=== PATIENT | female | born 1990 | race Caucasian/White ===

== ENCOUNTER 2019-01-22 18:04 | Emergency (ER) | payer OTHER ==
[2019-01-22 18:43] LABS: Urine Blood 2+ (NEG); Urine Glucose NEGATIVE (NEG); Urine Protein NEGATIVE (NEG); Urine pH 6.5 (5.0-7.0)
[2019-01-22] MEDS ORDERED: NA CHLORIDE 0.9% 1,000 ML ONE (18:43)
[2019-01-22] MEDS ORDERED: KETOROLAC 30 MG/ML INJ ONE (18:43)
[2019-01-22 19:10] LABS: Absolute Lymphocytes (CBC) 2.3 K/uL (0.7-4.9); Absolute Monocytes 0.4 K/uL (0.1-1.3); Absolute Neutrophil 4.6 K/uL (1.8-8.0); Basophils % 0.5 % (0-1.3); Eosinophils % 1.5 % (0-4.4); Hematocrit 37.9 % (36.0-45.0); Lymphocytes % 30.9 % (15.3-44.8); MPV 9.5 fL (7.6-11.3); Monocytes % 5.2 % (3.3-12.3); RBC Red Blood Cell Count 4.22 M/uL (3.86-4.86)
[2019-01-22 19:33] LABS: Potassium 3.9 mmol/L (3.5-5.1)
--- NOTE | 2019-01-22 23:01 | EDPHYS ---
Physician Documentation [facility] Name: Candice Rivera Age: 28 yrs Sex: Female : 1990 Arrival Date: 01/22/2019 Time: 18:08 Bed 24 Private MD: ED Physician Carlos Welsh HPI: 01/22 21:30 This 28 yrs old Female presents to ER via Ambulatory with complaints of kb Abdominal Pain. 21:30 The patient presents with abdominal pain right lower quadrant. Onset: The kb symptoms/episode began/occurred yesterday. The symptoms do not radiate. Associated signs and symptoms: none. The symptoms are described as constant. Modifying factors: The symptoms are alleviated by nothing, the symptoms are aggravated by nothing. Severity of pain: At its worst the pain was moderate in the emergency department the pain is unchanged. The patient has not experienced similar symptoms in the past. The patient has not recently seen a physician. 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 - Social history:: Smoking status: Patient/guardian denies using tobacco. - Ebola Screening: : No symptoms or risks identified at this time. ROS: 21:41 Constitutional: Negative for fever, chills, and weight loss, Neck: Negative for injury, kb pain, and swelling, Cardiovascular: Negative for chest pain, palpitations, and edema, Respiratory: Negative for shortness of breath, cough, wheezing, and pleuritic chest pain, Back: Negative for injury and pain, : Negative for injury, bleeding, discharge, and swelling, MS/Extremity: Negative for injury and deformity, Skin: Negative for injury, rash, and discoloration, Neuro: Negative for headache, weakness, numbness, tingling, and seizure. 21:41 Abdomen/GI: Positive for abdominal pain, Negative for nausea, vomiting, and diarrhea. Exam: 21:40 Constitutional: This is a well developed, well nourished patient who is awake, alert, kb and in no acute distress. Head/Face: Normocephalic, atraumatic. Chest/axilla: Normal chest wall appearance and motion. Nontender with no deformity. No lesions are appreciated. Cardiovascular: Regular rate and rhythm with a normal S1 and S2. No gallops, murmurs, or rubs. Normal PMI, no JVD. No pulse deficits. Respiratory: Lungs have equal breath sounds bilaterally, clear to auscultation and percussion. No rales, rhonchi or wheezes noted. No increased work of breathing, no retractions or nasal flaring. Skin: Warm, dry with normal turgor. Normal color with no rashes, no lesions, and no evidence of cellulitis. MS/ Extremity: Pulses equal, no cyanosis. Neurovascular intact. Full, normal range of motion. Neuro: Awake and alert, GCS 15, oriented to person, place, time, and situation. Cranial nerves II-XII grossly intact. Motor strength 5/5 in all extremities. Sensory grossly intact. Cerebellar exam normal. Normal gait. 21:40 Abdomen/GI: Inspection: abdomen appears normal, Bowel sounds: normal, in all quadrants, Palpation: soft, in all quadrants, moderate abdominal tenderness, in the right lower quadrant. Vital Signs: 18:15 BP 144 / 84; Pulse 73; Resp 16; Temp 98.4; Pulse Ox 100% on R/A; Weight 79.38 kg; hb Height 5 ft. 8 in. (172.72 cm); Pain 8/10; 19:00 BP 127 / 85; Pulse 56; Resp 15; Temp 98.2; Pulse Ox 100% ; rv 21:00 BP 120 / 76; Pulse 66; Resp 16; Pulse Ox 99% ; rv 22:30 BP 128 / 90; Pulse 74; Resp 17; Temp 98.3; Pulse Ox 99% ; rv 18:15 Body Mass Index 26.61 (79.38 kg, 172.72 cm) hb MDM: 18:19 Patient medically screened. kb 21:40 Data reviewed: vital signs, nurses notes. Data interpreted: Pulse oximetry: on room air kb is 100 %. Interpretation: normal. 23:01 Counseling: I had a detailed discussion with the patient and/or guardian regarding: the kb historical points, exam findings, and any diagnostic results supporting the discharge/admit diagnosis, lab results, radiology results, the need for outpatient follow up, a family practitioner, to return to the emergency department if symptoms worsen or persist or if there are any questions or concerns that arise at home. 01/22 18:25 Order name: Basic Metabolic Panel; Complete Time: 19:34 kb 01/22 18:25 Order name: CBC with Diff; Complete Time: 19:32 kb 01/22 18:25 Order name: CT Abd/Pelvis - W/Contrast kb 01/22 18:37 Order name: Urine Dipstick--Ancillary (enter results); Complete Time: 18:46 bd 01/22 18:37 Order name: Urine --Ancillary (enter results); Complete Time: 18:46 bd 01/22 18:25 Order name: IV Saline Lock; Complete Time: 18:28 kb 01/22 18:25 Order name: Labs collected and sent; Complete Time: 18:28 kb 01/22 18:26 Order name: Urine Test (obtain specimen); Complete Time: 18:54 kb 01/22 18:26 Order name: Urine Dipstick-Ancillary (obtain specimen); Complete Time: 18:54 kb Administered Medications: 19:21 Drug: NS 0.9% 1000 ml Route: IV; Rate: 1000 ml; Site: left antecubital; aj1 23:16 Follow up: IV Status: Completed infusion rv 23:16 Follow up: IV Intake: 1000ml rv 19:21 Drug: TORadol 30 mg Route: IVP; Site: left forearm; aj1 23:16 Follow up: Response: Marked relief of symptoms rv Disposition: 01/23 07:07 Co-signature as Attending Physician, Carlos Welsh MD I agree with the assessment and long plan of care. Disposition: 01/22/19 23:01 Discharged to Home. Impression: Lower abdominal pain, unspecified. - Condition is Stable. - Discharge Instructions: Abdominal Pain, Adult, [id number]. - Prescriptions for Diclofenac Sodium 75 mg Oral Tablet, Delayed Release (E.C.) - take 1 tablet by ORAL route 2 times per day As needed; 30 tablet. - Medication Reconciliation Form, Thank You Letter, Antibiotic Education, Prescription Opioid Use form. - Follow up: Emergency Department; When: As needed; Reason: Worsening of condition. Follow up: Private Physician; When: 2 - 3 days; Reason: Recheck today's complaints, Continuance of care, Re-evaluation by your physician. Signatures: Dispatcher [employer] EDND Sharron Tucker, FEED RESEARCH AIDE-C FEED RESEARCH AIDE-Caitlyn Dorado RN RN aj1 aCrlos Welsh MD MD cha Baxter, Heather, RN RN Jose Pierre, RN RN rv Corrections: (The following items were deleted from the chart) 01/22 23:18 23:01 01/22/2019 23:01 Discharged to Home. Impression: Lower abdominal pain, rv unspecified. Condition is Stable. Forms are Medication Reconciliation Form, Thank You Letter, Antibiotic Education, Prescription Opioid Use. Follow up: Emergency Department; When: As needed; Reason: Worsening of condition. Follow up: Private Physician; When: 2 - 3 days; Reason: Recheck today's complaints, Continuance of care, Re-evaluation by your physician. kb
--- NOTE | 2019-01-22 23:01 | ER ---
Nurse's Notes [facility] Name: Candice Rivera Age: 28 yrs Sex: Female : 1990 Arrival Date: 01/22/2019 Time: 18:08 Bed 24 Private MD: Diagnosis: Lower abdominal pain, unspecified Presentation: 01/22 18:16 Presenting complaint: Intermittent RLQ pain x 2 weeks, continuous lower abdominal hb cramping since yesterday. Denies N/V/D/fever/urinary s/s. Transition of care: patient was not received from another setting of care. Onset of symptoms was January 08, 2019. Risk Assessment: Do you want to hurt yourself or someone else? Patient reports no desire to harm self or others. Initial Sepsis Screen: Does the patient meet any 2 criteria? No. Patient's initial sepsis screen is negative. Does the patient have a suspected source of infection? No. Patient's initial sepsis screen is negative. Care prior to arrival: None. 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 - Social history:: Smoking status: Patient/guardian denies using tobacco. - Ebola Screening: : No symptoms or risks identified at this time. Screenin:20 Abuse screen: Denies threats or abuse. Denies injuries from another. Nutritional sg screening: No deficits noted. Tuberculosis screening: No symptoms or risk factors identified. Never had TB. Fall Risk None identified. Assessment: 18:20 General: Appears in no apparent distress. well groomed, well developed, well nourished, sg Behavior is calm, cooperative, appropriate for age. Pain: Complains of pain in right lower quadrant and left lower quadrant Quality of pain is described as aching. Neuro: Level of Consciousness is awake, alert, obeys commands, Oriented to person, place, time. Cardiovascular: Capillary refill < 3 seconds Patient's skin is warm and dry. Respiratory: Airway is patent Respiratory effort is even, unlabored, Respiratory pattern is regular, symmetrical. GI: Abdomen is round non-distended, Bowel sounds present X 4 quads. Abd is soft and non tender X 4 quads. : No signs and/or symptoms were reported regarding the genitourinary system. EENT: No signs and/or symptoms were reported regarding the EENT system. Derm: Skin is pink, warm \T\ dry. Musculoskeletal: No signs and/or symptoms reported regarding the musculoskeletal system. 19:22 Reassessment: Patient reports that her pain is mild at this time. General: Appears in aj1 no apparent distress. comfortable, Behavior is calm, cooperative, appropriate for age. Pain: Complains of pain in left lower quadrant and right lower quadrant. Neuro: Level of Consciousness is awake, alert, obeys commands, Oriented to person, place, time, situation. Cardiovascular: Patient's skin is warm and dry. Respiratory: Airway is patent Respiratory effort is even, unlabored, Respiratory pattern is regular, symmetrical. GI: Abdomen is non-distended. Derm: No signs and/or symptoms reported regarding the dermatologic system. Skin is pink, warm \T\ dry. normal. Musculoskeletal: No signs and/or symptoms reported regarding the musculoskeletal system. Circulation, motion, and sensation intact. Vital Signs: 18:15 BP 144 / 84; Pulse 73; Resp 16; Temp 98.4; Pulse Ox 100% on R/A; Weight 79.38 kg; hb Height 5 ft. 8 in. (172.72 cm); Pain 8/10; 19:00 BP 127 / 85; Pulse 56; Resp 15; Temp 98.2; Pulse Ox 100% ; rv 21:00 BP 120 / 76; Pulse 66; Resp 16; Pulse Ox 99% ; rv 22:30 BP 128 / 90; Pulse 74; Resp 17; Temp 98.3; Pulse Ox 99% ; rv 18:15 Body Mass Index 26.61 (79.38 kg, 172.72 cm) hb ED Course: 18:08 Patient arrived in ED. rg4 18:18 Triage completed. hb 18:18 Arm band placed on left wrist. hb 18:19 Sharron Tucker [facility]-C [facility]. kb 18:19 Carlos Welsh MD is Attending Physician. kb 18:29 Qasim Beckman RN is Primary Nurse. sg 18:56 Initial lab(s) drawn, by me, sent to lab. Inserted saline lock: 22 gauge in left lt1 forearm, using aseptic technique. Missed attempt(s): 20 gauge in right antecubital area. 19:00 Patient has correct armband on for positive identification. Placed in gown. Bed in low rv position. Call light in reach. Side rails up X 1. 19:00 Pulse ox on. NIBP on. rv 21:25 CT Abd/Pelvis - W/Contrast In Process Unspecified. EDMS 23:16 No provider procedures requiring assistance completed. IV discontinued, intact, rv bleeding controlled, No redness/swelling at site. Pressure dressing applied. Administered Medications: 19:21 Drug: NS 0.9% 1000 ml Route: IV; Rate: 1000 ml; Site: left antecubital; [facility] 23:16 Follow up: IV Status: Completed infusion rv 23:16 Follow up: IV Intake: 1000ml rv 19:21 Drug: TORadol 30 mg Route: IVP; Site: left forearm; [facility] 23:16 Follow up: Response: Marked relief of symptoms rv Intake: 23:16 IV: 1000ml; Total: 1000ml. rv Outcome: 23:01 Discharge ordered by . kb 23:17 Discharged to home ambulatory. rv 23:17 Condition: good 23:17 Discharge instructions given to patient, Instructed on discharge instructions, follow up and referral plans. medication usage, Demonstrated understanding of instructions, follow-up care, medications, Prescriptions given X 1. 23:18 Patient left the ED. rv Signatures: Dispatcher [employer] EDMS Sharron Tucker, SIX SIGMA BLACK BELT ENGINEER-C SIX SIGMA BLACK BELT ENGINEER-Ckb Caitlyn Finnegan, MARILEE RN aj1 Qasim Beckman RN Cristina Juarez, RN Tiffani Turner rg4 Jose Pierre RN MARILEE Poppy Gama lt1
--- NOTE | 2019-01-23 10:05 | RAD REPORT ---
EXAM DESCRIPTION: Abdomen Pelvis W Contrast CLINICAL HISTORY: 28 years Female Intermittent right lower quadrant pain for two weeks. TECHNIQUE: Contiguous axial images obtained through the abdomen and pelvis following the administrat ion of IV contrast. Oral contrast also administered. Coronal and sagittal reformatted images provid ed. This CT exam was performed according to our departmental dose-optimization program, which includes on e or more of the following dose reduction techniques: automated exposure control, adjustment of the m A and/or kV according to patient size, and/or use of iterative reconstruction technique. COMPARISON: No prior exams provided for comparison. FINDINGS: The appendix is normal. There is no bowel inflammation, obstruction, free intraperitonea l air, or abdominal ascites. No abdominal or pelvic lymphadenopathy. Trace free fluid in the cul-de-sac with small bilateral ovarian follicles. Normal uterus. Suspected mild diffuse thickening of the urinary bladder. No hydronephrosis or pyelonephritis on eith er side. Both kidneys appear normal. Minimal left basilar atelectasis. The liver, biliary tree, gallbladder, pancreas, spleen, adrenal g lands, and osseous structures are normal. IMPRESSION: Trace free fluid in the cul-de-sac with small bilateral ovarian follicles, likely physio logic. Possible cystitis, correlate with urinalysis. Normal kidneys. No other acute findings. Normal appendix. Electronically signed by: Shannan Spears MD 01/22/2019 9:39 PM CDT Due to temporary technical issues with the PACS/Fluency reporting system, reports are being signed by the in house radiologist as a courtesy to ensure prompt reporting. The interpreting radiologist is f ully responsible for the content of the report.
== END 2019-01-22 23:18 | disposition home or self-care (01) ==
LOC: ER 18:04
DX: R10.31 Right lower quadrant pain (principal)
CPT/HCPCS: 36415; 74177; 80048; 81003; 81025; 85025; 96361; 96374; 99284; J7030; Q9967

== ENCOUNTER 2019-07-23 01:18 | Emergency (ER) | payer OTHER ==
[2019-07-23] MEDS ORDERED: NA CHLORIDE 0.9% 1,000 ML ONE (01:44)
[2019-07-23 02:15] LABS: Absolute Lymphocytes (CBC) 1.9 K/uL (0.7-4.9); Basophils % 0.5 % (0-1.3); Hematocrit 37.8 % (36.0-45.0); MPV 9.2 fL (7.6-11.3); RBC Red Blood Cell Count 4.25 M/uL (3.86-4.86)
[2019-07-23 02:26] LABS: ALT/SGPT 37 U/L (12-78); AST/SGOT 19 U/L (15-37); Albumin 4.1 g/dL (3.4-5.0); Alkaline Phosphatase 77 U/L (45-117); BUN Blood Urea Nitrogen 11 mg/dL (7-18); Bicarbonate 26 mmol/L (21-32); Bilirubin Direct < 0.1 mg/dL (0-0.2); Bilirubin Total 0.2 mg/dL (0.2-1.0); Glucose Level 100 mg/dL (74-106); Lipase 135 U/L (73-393); Potassium 3.9 mmol/L (3.5-5.1); Protein, Total 7.4 g/dL (6.4-8.2); Sodium Level 138 mmol/L (136-145)
[2019-07-23 03:51] LABS: Urine Blood NEGATIVE (NEG); Urine Glucose NEGATIVE (NEG); Urine Protein NEGATIVE (NEG)
--- NOTE | 2019-07-23 04:53 | ER ---
Nurse's Notes [facility] Name: Candice Rivera Age: 28 yrs Sex: Female : 1990 Arrival Date: 07/23/2019 Time: 01:20 Bed 5 Private MD: Diagnosis: Upper abdominal pain, unspecified Presentation: 07/23 01:23 Presenting complaint: Patient states: ABDOMINAL PAIN STARTED TODAY. I WAS SEEN 3 MONTHS rv AGO FOR THE SAME THING AND THEY DID NOT FIND ANYTHING. TODAY I STARTED VOMITING. Transition of care: patient was not received from another setting of care. Onset of symptoms was July 22, 2019 at 22:00. Risk Assessment: Do you want to hurt yourself or someone else? Patient reports no desire to harm self or others. Initial Sepsis Screen: Does the patient meet any 2 criteria? No. Patient's initial sepsis screen is negative. Does the patient have a suspected source of infection? No. Patient's initial sepsis screen is negative. Care prior to arrival: None. 01:23 Method Of Arrival: Ambulatory rv 01:23 Acuity: MARCELION 3 rv Triage Assessment: 01:33 General: Appears in no apparent distress. ill, Behavior is calm, cooperative. Pain: rv Complains of pain in abdomen Pain radiates to back Pain currently is 9 out of 10 on a pain scale. Quality of pain is described as sharp, Pain began suddenly, Is continuous. GI: Abdomen is flat, Pt is actively vomiting undigested food. 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 - Social history:: Smoking status: Patient/guardian denies using tobacco. - Ebola Screening: : No symptoms or risks identified at this time. Screenin:48 Abuse screen: Denies threats or abuse. Nutritional screening: No deficits noted. ea Tuberculosis screening: No symptoms or risk factors identified. Fall Risk IV access (20 points). Assessment: 01:47 General: Appears in no apparent distress. Behavior is calm, cooperative, appropriate ea for age. Pain: Complains of pain in abdomen. Neuro: Level of Consciousness is awake, alert, obeys commands, Oriented to person, place, time. Cardiovascular: Patient's skin is warm and dry. Respiratory: Airway is patent Respiratory effort is even, unlabored, Respiratory pattern is regular, symmetrical. GI: Abdomen is non-distended, Bowel sounds present X 4 quads. Abd is soft and non tender Reports lower abdominal pain, upper abdominal pain. Derm: Skin is pink, warm \T\ dry. 02:33 Reassessment: Patient appears in no apparent distress at this time. No changes from ak1 previously documented assessment. pt informed of need for urine sample prior to CT scan. pt stated she is unable to urinate at this time. will continue to monitor. 05:08 Reassessment: Patient appears in no apparent distress at this time. No changes from ak1 previously documented assessment. Patient and/or family updated on plan of care and expected duration. Pain level reassessed. Patient is alert, oriented x 3, equal unlabored respirations, skin warm/dry/pink. Patient denies pain at this time. Patient states feeling better. Patient states symptoms have improved. Vital Signs: 01:32 BP 148 / 92; Pulse 88; Resp 17; Temp 98.7; Pulse Ox 98% on R/A; Weight 79.38 kg; Height rv 5 ft. 6 in. (167.64 cm); Pain 9/10; 02:34 BP 134 / 78; Pulse 73; Resp 14; Pulse Ox 99% on R/A; ak1 03:30 BP 109 / 59; Pulse 73; Resp 18; Pulse Ox 99% on R/A; ea 05:09 BP 106 / 64; Pulse 76; Resp 16; Temp 98.6; Pulse Ox 98% on R/A; ak1 01:32 Body Mass Index 28.25 (79.38 kg, 167.64 cm) rv ED Course: 01:20 Patient arrived in ED. ag3 01:29 Carrillo Pearl NP is PHCP. pm1 01:29 Luis Antonio Kelley MD is Attending Physician. pm1 01:31 Triage completed. rv 01:41 Jaja Brown, MARILEE is Primary Nurse. ea 01:44 Radiology exam delayed due to lab results not completed at this time. test vm2 not completed at this time. 01:48 Arm band placed on right wrist. Patient placed in an exam room, on a stretcher, on ea pulse oximetry. 01:48 Patient has correct armband on for positive identification. Placed in gown. Bed in low ea position. Call light in reach. 02:06 Inserted saline lock: 20 gauge in left antecubital area, using aseptic technique. ea ,using aseptic technique. placed by Primitivo HUNT. 02:12 Radiology exam delayed due to lab results not completed at this time. test vm2 not completed at this time. 02:30 Radiology exam delayed due to test not completed at this time. vm2 03:26 CT Abd/Pelvis - IV Contrast Only In Process Unspecified. EDMS 05:09 No provider procedures requiring assistance completed. IV discontinued, intact, ak1 bleeding controlled, No redness/swelling at site. Pressure dressing applied. Administered Medications: 01:51 Drug: NS 0.9% 1000 ml Route: IV; Rate: 1000 ml; Site: right antecubital; ea 02:33 Follow up: IV Status: Completed infusion; IV Intake: 1000ml ak1 Intake: 02:33 IV: 1000ml; Total: 1000ml. ak1 Outcome: 04:53 Discharge ordered by . tw4 04:53 Discharge ordered by . tw4 05:09 Discharged to home ambulatory, with family. ak1 05:09 Condition: improved 05:09 Discharge instructions given to patient, Instructed on discharge instructions, follow up and referral plans. Demonstrated understanding of instructions, follow-up care. 05:16 Patient left the ED. ak1 Signatures: Dispatcher [employer] EDMT Theresa Valdivia RN MARILEE ak1 Carrillo Pearl, MEAT BONER MEAT BONER pm1 Mimi Mccann 2 Jaja Brown RN RN ea Wadley, Terrence, MD MD tw4 Jose Pierre RN RN rv Gomez, Alice 3
--- NOTE | 2019-07-23 04:55 | EDPHYS ---
Physician Documentation [facility] Name: Candice Rivera Age: 28 yrs Sex: Female : 1990 Arrival Date: 07/23/2019 Time: 01:20 Bed 5 Private MD: ED Physician Luis Antonio Kelley HPI: 07/23 02:16 This 28 yrs old Female presents to ER via Ambulatory with complaints of pm1 Abdominal Pain. 02:16 The patient presents with abdominal pain in the epigastric area. Onset: The pm1 symptoms/episode began/occurred 3 month(s) ago, Abdominal pain present daily for the past three months. Presented to the ER today because pain is lasting longer today and with vomiting. No fever or diarrhea. The symptoms do not radiate. The symptoms are described as sharp. Modifying factors: The symptoms are alleviated by abdominal pain improved with vomiting. the symptoms are aggravated by nothing. Severity of pain: in the emergency department the pain has improved. The patient has not recently seen a physician. 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 - Social history:: Smoking status: Patient/guardian denies using tobacco. - Ebola Screening: : No symptoms or risks identified at this time. ROS: 02:16 Constitutional: Negative for fever, chills, and weight loss, Eyes: Negative for injury, pm1 pain, redness, and discharge, ENT: Negative for injury, pain, and discharge, Neck: Negative for injury, pain, and swelling, Cardiovascular: Negative for chest pain, palpitations, and edema, Respiratory: Negative for shortness of breath, cough, wheezing, and pleuritic chest pain. 02:16 Back: Negative for injury and pain, : Negative for injury, bleeding, discharge, and swelling, MS/Extremity: Negative for injury and deformity, Skin: Negative for injury, rash, and discoloration. 02:16 Neuro: Negative for headache, weakness, numbness, tingling, and seizure. 02:16 Abdomen/GI: Positive for abdominal pain, nausea and vomiting, of the epigastric area, Negative for diarrhea, constipation. Exam: 02:16 Constitutional: This is a well developed, well nourished patient who is awake, alert, pm1 and in no acute distress. Head/Face: Normocephalic, atraumatic. Neck: Trachea midline, no thyromegaly or masses palpated, and no cervical lymphadenopathy. Supple, full range of motion without nuchal rigidity, or vertebral point tenderness. No Meningismus. Chest/axilla: Normal chest wall appearance and motion. Nontender with no deformity. No lesions are appreciated. Cardiovascular: Regular rate and rhythm with a normal S1 and S2. No gallops, murmurs, or rubs. Normal PMI, no JVD. No pulse deficits. Respiratory: Lungs have equal breath sounds bilaterally, clear to auscultation and percussion. No rales, rhonchi or wheezes noted. No increased work of breathing, no retractions or nasal flaring. 02:16 Back: No spinal tenderness. No costovertebral tenderness. Full range of motion. Skin: Warm, dry with normal turgor. Normal color with no rashes, no lesions, and no evidence of cellulitis. 02:16 MS/ Extremity: Pulses equal, no cyanosis. Neurovascular intact. Full, normal range of motion. 02:16 Abdomen/GI: Inspection: abdomen appears normal, Bowel sounds: normal, Palpation: soft, mild abdominal tenderness, in the epigastric area, mass, is not appreciated, rebound tenderness, is not appreciated. 02:16 Neuro: Orientation: is normal, Motor: is normal, moves all fours. Vital Signs: 01:32 BP 148 / 92; Pulse 88; Resp 17; Temp 98.7; Pulse Ox 98% on R/A; Weight 79.38 kg; Height rv 5 ft. 6 in. (167.64 cm); Pain 9/10; 02:34 BP 134 / 78; Pulse 73; Resp 14; Pulse Ox 99% on R/A; ak1 03:30 BP 109 / 59; Pulse 73; Resp 18; Pulse Ox 99% on R/A; ea 05:09 BP 106 / 64; Pulse 76; Resp 16; Temp 98.6; Pulse Ox 98% on R/A; ak1 01:32 Body Mass Index 28.25 (79.38 kg, 167.64 cm) rv MDM: 01:30 Patient medically screened. pm1 02:21 Data reviewed: vital signs. Data interpreted: Pulse oximetry: on room air is 98 %. pm1 Interpretation: normal. 02:21 ED course: Patient refused antiemetic and pain medications offered. pm1 07/23 01:41 Order name: Basic Metabolic Panel; Complete Time: 02:30 pm1 07/23 01:41 Order name: CBC with Diff; Complete Time: 02:30 pm1 07/23 01:41 Order name: Creatinine for Radiology; Complete Time: 02:30 pm07/23 01:41 Order name: Hepatic Function; Complete Time: 02:30 pm1 07/23 01:41 Order name: Lipase; Complete Time: 02:30 pm07/23 03:07 Order name: Urine Dipstick--Ancillary (enter results) 2 07/23 01:41 Order name: IV Saline Lock; Complete Time: 01:56 pm07/23 01:42 Order name: Labs collected and sent; Complete Time: 01:57 pm1 07/23 01:42 Order name: Urine Dipstick-Ancillary (obtain specimen); Complete Time: 03:05 pm07/23 01:42 Order name: Urine Test (obtain specimen); Complete Time: 03:05 pm1 07/23 01:42 Order name: CT Abd/Pelvis - IV Contrast Only pm1 07/23 03:07 Order name: Urine --Ancillary (enter results) [facility] Administered Medications: 01:51 Drug: NS 0.9% 1000 ml Route: IV; Rate: 1000 ml; Site: right antecubital; ea 02:33 Follow up: IV Status: Completed infusion; IV Intake: 1000ml ak1 Disposition: 07/23/19 04:53 Discharged to Home. Impression: Upper abdominal pain, unspecified. - Condition is Stable. - Discharge Instructions: Abdominal Pain, Adult. - Medication Reconciliation Form, Thank You Letter, Antibiotic Education, Prescription Opioid Use form. - Follow up: Emergency Department; When: As needed; Reason: Worsening of condition. Follow up: Private Physician; When: 2 - 3 days; Reason: Recheck today's complaints, Continuance of care, Re-evaluation by your physician. - Problem is new. - Symptoms have improved. Addendum: 07/24/2019 06:56 Co-signature as Attending Physician, Luis Antonio Kelley MD I agree with the assessment and t w4 plan of care. Signatures: Dispatcher [employer] Theresa Smith, RN RN ak1 Carrillo Pearl, RAMP SERVICE MAN RAMP SERVICE MAN pm1 Jaja Brown, RN RN Luis Antonio Lacy MD MD tw4 Jose Pierre RN RN rv Corrections: (The following items were deleted from the chart) 07/23 04:53 04:53 07/23/2019 04:53 Discharged to Home. Impression: Upper abdominal pain, tw4 unspecified. Condition is Stable. Discharge Instructions: Abdominal Pain, Adult. Forms are Medication Reconciliation Form, Thank You Letter, Antibiotic Education, Prescription Opioid Use. Follow up: Emergency Department; When: As needed; Reason: Worsening of condition. Follow up: Private Physician; When: 2 - 3 days; Reason: Recheck today's complaints, Continuance of care, Re-evaluation by your physician. Problem is new. Symptoms have improved. tw4 05:16 04:53 07/23/2019 04:53 Discharged to Home. Impression: Upper abdominal pain, ak1 unspecified. Condition is Stable. Discharge Instructions: Abdominal Pain, Adult. Forms are Medication Reconciliation Form, Thank You Letter, Antibiotic Education, Prescription Opioid Use. Follow up: Emergency Department; When: As needed; Reason: Worsening of condition. Follow up: Private Physician; When: 2 - 3 days; Reason: Recheck today's complaints, Continuance of care, Re-evaluation by your physician. Problem is new. Symptoms have improved. tw4
[2019-07-23 05:27] VITALS: BP 106/64; TEMP 98.6; O2SAT 98
--- NOTE | 2019-07-23 10:59 | RAD REPORT ---
EXAM DESCRIPTION: abdomen and pelvis with IV contrast CLINICAL HISTORY: 28-year-old female with epigastric pain and generalized abdominal pain that radiat es to the back TECHNIQUE: Axial CT imaging of the abdomen and pelvis was performed following the administration of intravenous contrast.. Sagittal and coronal reconstructed images were then performed. The CT stud y is performed according to ALARA (as low as reasonably achievable) or ALARA/IMAGE GENTLY, with autom atic adjustment of mA and/or kV according to patient size. Performed on: 07/23/2019 at 3:18 AM. COMPARISON: 01/22/2019 FINDINGS: Lung bases: The lung bases are clear. There is minimal left basilar atelectasis and/or fib rosis. Liver: The liver is normal in size and configuration. No focal hepatic abnormalities are identified. Liver attenuation is within normal limits. Spleen: The spleen is normal is size, configuration and attenuation. Gallbladder and bile duct: The gallbladder is well distended and unremarkable. There is no biliary ductal dilatation. Pancreas: The pancreas is grossly normal in size and configuration. Adrenal Glands: The adrenal glands are normal in size and configuration. Kidneys: The kidneys are normal in size and configuration. There is no evidence of hydronephrosis. Th ere is no evidence of nephrolithiasis. No definite solid or cystic renal mass lesions are identified. Stomach: The stomach is grossly normal. There is no definite hiatal hernia. Bowel: The bowel gas pattern is non specific and non obstructive. Appendix: The appendix is normal. Free air: There is no evidence of free air. Free fluid: There is a small amount of free fluid in the posterior cul-de-sac, similar when compared to the prior study. Vasculature: The aorta is normal in caliber and contour. The inferior vena cava is grossly unremarkab le. Lymphadenopathy: No pathologic lymphadenopathy is identified. Bladder: The bladder is well distended and smooth in contour. Reproductive: The uterus is retroflexed. Bones: No acute osseous abnormalities are identified. Soft tissues: No focal soft tissue abnormalities are identified. IMPRESSION: 1. Small amount of nonspecific free fluid in the posterior cul-de-sac. 2. Retroflexed uterus. 3. Otherwise, no evidence of acute intra-abdominal or intrapelvic pathology. Electronically signed by: Caitlyn Contreras DO 07/23/2019 3:42 AM HAND CEMENTER Due to temporary technical issues with the PACS/Fluency reporting system, reports are being signed by the in house radiologist as a courtesy to ensure prompt reporting. The interpreting radiologist is f ully responsible for the content of the report.
== END 2019-07-23 05:16 | disposition home or self-care (01) ==
LOC: ER 01:18
DX: R10.13 Epigastric pain (principal)
CPT/HCPCS: 85025; 80048; 36415; 81025; 80076; 81003; 83690; 74177; 96360; 99284; Q9967; J7030

== ENCOUNTER 2020-05-29 04:28 | Inpatient (IN) | payer OTHER ==
[2020-05-28 09:15] LABS: Urine Appearance CLEAR; Urine Bilirubin NEGATIVE (NEG); Urine Blood NEGATIVE (NEG); Urine Color DK YELLOW; Urine Glucose NEGATIVE (NEG); Urine Protein TRACE (NEG); Urine Specific Gravity 1.015 (1.005-1.030); Urine pH 6.5 (5.0-7.0)
[2020-05-28 09:17] LABS: Absolute Lymphocytes (CBC) 1.3 K/uL (0.7-4.9); Basophils % 0.1 % (0-1.3); Hematocrit 33.3 % (36.0-45.0); Lymphocytes % 11.4 % (15.3-44.8); MPV 9.6 fL (7.6-11.3); RBC Red Blood Cell Count 3.66 M/uL (3.86-4.86)
[2020-05-28 09:37] LABS: Urine Bacteria <20 /HPF (<20); Urine Culture Reflex Order NOT NEEDED; Urine RBC <5 /HPF (NONE SEEN)
[2020-05-28 22:16] LABS: RPR (Rapid Plasma Reagin) NON-REACT (NON-REACT)
[~2020-05-29 04:28] MED LIST: Ringers Lactate 1,000 ML IV PRN
[2020-05-29] MEDS ORDERED: METHYLERGONOVINE 0.2MG/ML AMP IM ONE (04:29)
[2020-05-29] MEDS ORDERED: CARBOPROST TROME 250 MCG/ML IM ONE (04:29)
[2020-05-29] MEDS ORDERED: NA CIT/CITRIC AC 30 ML ORAL UDC PO ONE (04:32)
[2020-05-29 04:50] VITALS: BMI 31.1
[2020-05-29] MEDS ORDERED: Ringers Lactate 1,000 ML IV SCH (05:00)
[2020-05-29] MEDS ORDERED: METOCLOPRAMIDE 10 MG/2mL INJ IV SCH (05:00)
[2020-05-29] MEDS ORDERED: FAMOTIDINE 20 MG/2 ML VIAL IV SCH (05:00)
[2020-05-29] MEDS ORDERED: CEFAZOLIN 2 GM in NA CHLORIDE 0.9% 100 ML IVPB SCH (05:00)
[2020-05-29] MEDS ORDERED: CEFAZOLIN/SWI 2gm 2 GM/20 ML SYR ONE ×2 (06:35→17:01)
[2020-05-29] MEDS ORDERED: NS 0.9% VIAL 10 ML ONE (07:09)
[2020-05-29] MEDS ORDERED: EPHEDRINE SULF 50 MG/ML VIAL ONE (07:09)
[2020-05-29] MEDS ORDERED: OXYTOCIN 10 UNIT/ML ML IV ONE ×2 (07:09→08:28)
[2020-05-29] MEDS ORDERED: MORPHINE SULFATE/PF 1 MG/ML (10 ML AMP) ONE (07:11)
[2020-05-29] MEDS ORDERED: ONDANSETRON 4 MG/2 ML VIAL ONE (07:11)
[2020-05-29] MEDS ORDERED: BUPIVACAINE 0.75% (PF) 2 ML SP ONE (07:11)
[2020-05-29] MEDS ORDERED: LIDOCAINE 1% MPF 5 ML VIAL ONE (07:18)
[2020-05-29] MEDS ORDERED: IBUPROFEN 600 MG TAB PO PRN (08:42)
[2020-05-29] MEDS ORDERED: ACETAMINOPHEN 500 MG TAB PO PRN ×2 (08:42)
[2020-05-29] MEDS ORDERED: DIPHENHYDRAMINE 25 MG TAB/CAP PO PRN (08:42)
[2020-05-29] MEDS ORDERED: BISACODYL 10 MG RECTAL SUPP RC PRN (08:42)
[2020-05-29] MEDS ORDERED: KETOROLAC 30 MG/ML INJ IV PRN (08:42)
[2020-05-29] MEDS ORDERED: ONDANSETRON 4 MG/2 ML VIAL IV PRN (08:42)
[2020-05-29] MEDS ORDERED: ONDANSETRON 4 MG (ODT) TAB PO PRN (08:42)
[2020-05-29] MEDS ORDERED: Oxycodone HCl/Acetaminophen 1 TAB TAB PO PRN ×2 (08:42)
[2020-05-29] MEDS ORDERED: D5LR 1,000 ML with OXYTOCIN 20 UNIT IV SCH ×2 (09:00)
[2020-05-29] MEDS ORDERED: OXYTOCIN/LR 20 UNIT/1,000 ML BAG IV SCH (09:00)
--- NOTE | 2020-05-29 09:59 | OP ---
Surgeon: Dimas Harley MD Anesthesiologist: Dr. Minor and associates. Indications: A 29-year-old female 2, para 1, followed antepartum without significant complic ations. History of herpes, herpes free interval. Also history of severe pelvic fracture and C-secti on. Because of that fracture, the patient was advised not to have baby vaginally. Therefore, we did the at 38 and 6 instead of taking the chance of her go into labor over the weekend. Full preoperative counseling concerning procedure and possible complications including infection, blood lo ss, anesthetic complications, injury to bladder, bowel, ureter, postoperative complications, clots in legs and pneumonia. Patient knows fully well. Does not constitute all the possible problems that c ould occur during or following surgery. Anesthesia: Spinal block anesthesia. Description Of Procedure: The patient was prepped and draped. Time-out was performed. The patient had been given 2 g of Ancef for prophylaxis. A Pfannenstiel incision was created across the previous incision line. Incision was carried to the fascia. The fascia was incised and incision carried tra nsversely bilaterally with Salvador scissors. Anterior and posterior fascial planes were developed with both blunt and sharp dissection. Rectus muscle was , peritoneum entered and retraction appl ied. Low transverse bladder flap developed, low transverse uterine incision created. A 7 pounds plu s female, nuchal cord loosely x1 was delivered without difficulty. Apgars 9 and 9. Cord blood speci men obtained. Placenta was removed manually. Uterus was cleared of clot and blood and exteriorized. Noted to have a small 1.5 cm fibroid on the fundal portion of the uterus sessile. The cervical os was dilated. The uterus was closed with a running lock stitch of 1 chromic followed by imbricating s titch of 1 chromic followed by about 4 [id number] stitches in left angle for complete hemostasis . Estimated blood loss was 1100 cc. Uterus was replaced in the peritoneal cavity after gutters rosa red of clot and blood. Inspection of suture line showed no further bleeding. Rectus muscles were re approximated with 0 Vicryl two interrupted sutures. 1 Vicryl used to close the fascia from either an gle to the midline. Subcutaneous tissue was closed with 2-0 plain. [place] were used for the skin. The patient tolerated all procedures well. Transferred back to her room in good condition. Final Diagnoses: Term intrauterine , 38 weeks 6 days, history of herpes, herpes free interv al, history of severe pelvic fracture, repeat section. MARIELOS/MAI Voice ID: [id number] Report ID: [id number]
[2020-05-29] MEDS ORDERED: Ringers Lactate 1,000 ML IV ONE (10:00)
[2020-05-29] MEDS ORDERED: CEFAZOLIN/SWI 1gm 1 GM/10 ML SYR IV ONE (16:00)
[2020-05-30] MEDS ORDERED: MAGNESIUM HYDROXIDE 8% 30 ML PO PRN (08:42)
[2020-05-30 11:59] VITALS: BP 136/69; TEMP 98.7
--- NOTE | 2020-05-30 20:24 | DS ---
Date of Discharge: 05/30/2020 Candice Rivera is a 29-year-old 2, para 1, 38 weeks 6 days, history of herpes, herpes free interval, history of severe pelvic fracture, was advised by her doctors never to deliver vaginally, w as delivered of a 7 pounds 10 ounces female, Apgars 9 and 9, nuchal cord loosely x1, spinal block ane sthesia. Estimated blood loss 1100 cc or less. Rh positive. Immune to rubella. Negative strep. N egative COVID. Postoperatively, hematocrit went from 33 to 32. Lochia is normal. No post spinal bl ock problems. In fact, the patient is not taking any analgesics to this point. We will discontinue Foster and IV. Start ambulation and p.o. intake. The patient given full postoperative talk. She is to return to my office next week for followup and staple removal. Dismissed with tramadol for analge nany. She can go home later this evening or tomorrow morning. Tdap and flu shots have been offered. Final Diagnoses: Intrauterine gestation at 38 weeks 6 days, history of herpes, herpes free interval, history of severe pelvic fracture, repeat section, spinal block anesthesia. Loose nuchal c ord. Small fundal fibroid less than 3 cm noted. The patient advised. MARIELOS/MAI Voice ID: [id number] Report ID: [id number]
[2020-06-01 02:21] LABS: HBsAG Nonreactive (Nonreactive)
--- NOTE | 2020-06-01 15:26 | PN ---
Lamont Rivera for repeat . Anesthesia has evaluated the patient. Her admission hematocrit is 33. The patient informed she has no questions this morning, has a history of herpes and a fractured pelvis history. So prior to labor is important. She is 38 weeks and 6 days at this point. MARIELOS/MAI Voice ID: [id number] Report ID: [id number]
== END 2020-05-30 14:20 | disposition home or self-care (01) | DRG 787 ==
LOC: 2ND-WC 04:28
PROVIDERS: ADMIT Specialist; ATTEND Specialist
PROC: 10907ZC Drainage of Amniotic Fluid, Therapeutic from Products of Conception, Via Natural or Artificial Opening (ICD-10-PCS; 2020-05-29)
PROC: 10D00Z1 Extraction of Products of Conception, Low, Open Approach (ICD-10-PCS; principal; 2020-05-29 07:30)
DX: O34.211 Maternal care for low transverse scar from previous cesarean delivery (principal); O98.32 Other infections with a predominantly sexual mode of transmission complicating childbirth; A60.09 Herpesviral infection of other urogenital tract; O34.13 Maternal care for benign tumor of corpus uteri, third trimester; D25.9 Leiomyoma of uterus, unspecified; Z3A.38 38 weeks gestation of pregnancy; Z37.0 Single live birth; Z20.828 Contact with and (suspected) exposure to other viral communicable diseases
CPT/HCPCS: 36415; 81001; 85014; 85025; 86592; 86850; 86900; 86901; 87340; 88307; J0690; J2210; J2405; J2590; J2765; J7120; J7121; U0003